=== PATIENT | male | born 1950 | race African-American/Black ===

== ENCOUNTER 2017-08-04 06:06 | Day surgery (SDC) | payer MEDICARE ==
[2017-08-03 10:54] VITALS: BMI 25.4
--- NOTE | 2017-08-03 14:49 | HP ---
- Patient Scheduled date of Surgery: 08/04/17 Scheduled Surgical Procedure: Phacoemulsification and cataract extraction with PCIOL Affected Eye: Right Chief Complaint (Indication for surgery): Decreased vision affecting ADLs - Ocular History Other Eye History: POAG Eye Medications: latanoprost qhs ou , vigamox tid OS, ilevro qd os. - Medical History Illnesses: Hypertension, Diabetes, Other (gerd) Current Medications: Ambulatory Orders Ranitidine HCl [Zantac] 150 mg PO DAILY 08/03/17 Allergies/Adverse Reactions: Allergies Allergy/AdvReac Type Severity Reaction Status Date / Time Tetracyclines Allergy Intermediate Verified 08/03/17 11:24 Ocular Examination - Best Corrected Visual Acuity Distance: Right eye: 20/40 Distance: Left eye: 20/30 - External/Slit Lamp Examination Abnormalities: arcus senilis - Intraocular Pressure Intraocular Pressure - Right eye: 14 Intraocular Pressure-Left eye: 14 - Lens Lens: 2+ NS, 3+ cortical - Vitreous/Retina Vitreous/Retina: c:d 0.5 m/v/p wnl hazy view - Special Examination M - Right eye: +3.25-0.50 x 085 M - Left eye: +2.25 -0.25 x 95 K - Right eye: 41.25/41.75 x 085 K - Left eye: 41.25/42.00 x 085 AL - Right eye: 24.10 AL - Left eye: 24.01 IOL bag: +21.0 d hoya 251 IOL sulcus: +20.5 d hoya 231 IOL AC: +17.5 d MTA 4uo - Impression Impression: Cataract Right Eye - Plan Plan: Phacoemulsification and cataract extraction - IOL Right eye (may need trypan blue) Post-hospital care will be provided in office on: 08/05/17
--- NOTE | 2017-08-03 14:52 | HP ---
History & Physical Update - History History: No Change - Assessment Assessment: No Change - Plan Plan: No Change
[~2017-08-04 06:06] MED LIST: TOBRAMYCIN/DEXAMETHASONE OPHTH. OINTMENT 1 TUBE OD ONE
[2017-08-04 06:34] VITALS: TEMP 97.7
[2017-08-04] MEDS ORDERED: DICLOFENAC SODIUM 0.1% OPHTHALMIC 2.5ML BOTTLE OP SCH (06:45)
[2017-08-04] MEDS ORDERED: LIDOCAINE HCL/PF 1% SDV 5ML VIAL ONE (07:18)
[2017-08-04] MEDS ORDERED: LIDOCAINE HCL 2% JELLY (5 ML/TUBE) ONE (07:18)
[2017-08-04] MEDS ORDERED: TOBRAMYCIN/DEXAMETHASONE OPHTH. OINTMENT 1 TUBE ONE (07:21)
[2017-08-04] MEDS ORDERED: CIPROFLOXACIN 0.3% EYE DROPS 5 ML BOTTLE ONE (07:57)
[2017-08-04] MEDS ORDERED: PHENYLEPHRINE 2.5% OPHTH SOLN 15 ML BOTTLE ONE (07:57)
[2017-08-04] MEDS ORDERED: ACETAMINOPHEN 325 MG TABLET (FP) PO PRN (08:00)
[2017-08-04] MEDS: FLURBIPROFEN 0.03% OPHTH SOLN 2.5 ML BOTTLE ONE ×3 (08:20→08:50)
[2017-08-04] MEDS: TROPICAMIDE 1% OPHTH SOLN 15 ML BOTTLE OP SCH ×3 (08:20→08:51)
[2017-08-04] MEDS: PHENYLEPHRINE 2.5% OPHTH SOLN 15 ML BOTTLE OP SCH ×3 (08:20→08:51)
[2017-08-04] MEDS: CIPROFLOXACIN HCL 0.3% OPHTH 2.5ML BOTTLE OP SCH ×3 (08:20→08:50)
[2017-08-04] MEDS ORDERED: EPINEPHrine/PF 1 MG/1 ML (1:1,000) AMPULE ONE (08:39)
--- NOTE | 2017-08-04 09:57 | HP ---
History & Physical Update - History History: No Change - Physical Physical: No Change - Assessment Assessment: No Change - Plan Plan: No Change (reviewed Dr. Salinas's h and P from 07/26/17)
[2017-08-04] MEDS ORDERED: MIDAZOLAM HCL 2 MG/2 ML SINGLE DOSE VIAL ONE (10:04)
[2017-08-04] MEDS ORDERED: TRYPAN BLUE 0.5 ML DISP.SYRIN ONE (10:06)
[2017-08-04] MEDS ORDERED: LIDOCAINE HCL 2% JELLY (5 ML/TUBE) TP ONE (10:07)
[2017-08-04] MEDS ORDERED: POVIDONE-IODINE 5% OPHTHALMIC PREP 30 ML SOLUTION OD ONE (10:10)
[2017-08-04] MEDS ORDERED: GLYCOPYRROLATE 0.2 MG/1 ML VIAL ONE (10:12)
[2017-08-04] MEDS ORDERED: CHONDROITIN SU A/HYALUR SOD 1 KIT IO ONE (10:17)
[2017-08-04] MEDS ORDERED: BSS (NA/CA/MG/K) BALANCED SALT SOLUTION OPHTH SOLN 15 ML BOTTLE OD ONE (10:17)
[2017-08-04] MEDS ORDERED: LIDOCAINE HCL 1% PRESERVATIVE FREE - 30ML VIAL IO ONE (10:17)
[2017-08-04] MEDS ORDERED: TRYPAN BLUE 0.5 ML DISP.SYRIN TP ONE (10:17)
[2017-08-04] MEDS ORDERED: EPINEPHrine/PF 1 MG/1 ML (1:1,000) AMPULE SQ ONE (10:23)
[2017-08-04] MEDS ORDERED: TOBRAMYCIN/DEXAMETHASONE OPHTH. OINTMENT 1 TUBE OD ONE (10:39)
--- NOTE | 2017-08-04 10:45 | OP ---
Ophthalmology Operative Note Pre-Operative Diagnosis: Cataract (cortical) Affected Eye: Right Operation: Phacoemulsification and cataract extraction with PCIOL Findings: cortical cataract od Post-Operative Diagnosis: Same as Pre-op [employer]vp [employer]: Evelio Anesthesiologist: Geraldo Glaser Anesthesia: Topical Specimens Removed: none Estimated blood loss: none Drains & Tubes with Location: none Operative Report Dictated: Yes
[2017-08-04 12:23] VITALS: BP 109/64; PULSE 55
--- NOTE | 2017-08-04 14:06 | OP ---
DATE OF OPERATION: 08/04/2017 PREOPERATIVE DIAGNOSIS: Cortical cataract, right eye. POSTOPERATIVE DIAGNOSIS: Cortical cataract, right eye. PROCEDURE: Phacoemulsification and cataract extraction with insertion of posterior chamber intraocular lens, right eye. SURGEON: Lucero Dunlap MD STEM LEAD FORMER: None. ANESTHESIA: Topical. ANESTHESIOLOGIST: Geraldo Glaser MD OPERATIVE PROCEDURE: The patient received 2% lidocaine gel and then was gently sedated and prepped and draped in the usual sterile fashion so as to expose only the right eye. Ophthalmic Betadine was instilled into the inferior fornix, and the lashes were taped out of the surgical field. An eyelid speculum was placed into the right eye. A paracentesis was made in superior clear cornea at the limbus. Next, 0.5 mL of nonpreserved lidocaine 1% was injected into the anterior chamber. An air bubble was injected into the anterior chamber, and trypan blue was dripped on the anterior capsular edge. Viscoelastic material was instilled into the anterior chamber via the paracentesis. A 2.4-mm keratome was then used to create the main incision in temporal clear cornea at the limbus. A continuous curvilinear capsulorrhexis was performed using a cystotome and Utrata forceps. Hydrodissection of the lens cortex was performed using BSS on a cannula until the nucleus was noted to be freely rotating. The phacoemulsification tip was inserted via the main wound and used to sculpt 2 perpendicular grooves into the lens nucleus. The nucleus was crackled into 4 quadrants. Each quadrant was lifted out of the capsule into the iris plane and individually phacoemulsified. The remaining cortical material was then aspirated using the irrigation and aspiration port. The capsular bag was inflated using Provisc, and an AcrySof lens, [id number], power +21.0 diopters was loaded into its port and injected into the capsular bag. It was centered using a Sinskey hook. The residual viscoelastic material was removed from the anterior chamber using irrigation and aspiration. The wound edges were hydrated using BSS. The wound was tested for leakage. It was found to be watertight. Therefore, TobraDex ointment was placed in the eye. The speculum was removed from the eye, and the eyelid was closed. A sterile dressing and shield were placed over the eye, and the patient was transferred to the recovery room in stable condition, told to follow up in 1 day. Kasia [id number]
== END 2017-08-04 12:00 | disposition home or self-care (01) ==
LOC: JASU-SURG 06:06
PROVIDERS: ATTEND Ophthalmology
PROC: 08RJ3JZ Replacement of Right Lens with Synthetic Substitute, Percutaneous Approach (ICD-10-PCS; principal; 2017-08-04 09:30)
DX: H26.9 Unspecified cataract (principal)